=== PATIENT | male | born 1940 | race Caucasian/White ===

== ENCOUNTER → 2016-12-25 | Outpatient (CLI) | payer MEDICARE, BC ==
[~2016-12-25] MED LIST: FLEX5TAB OR; LORT5TAB PO; NAPR250UDC PO; SIMV5TAB3 OR
[2016-12-25 12:09] LABS: AUTOMATED NEUTROPHIL # 6.5 TH/MM3 (1.8-7.7); BASOPHIL # 0.1 TH/MM3 (0-0.2); BASOPHIL % 0.8 % (0.0-2.0); EOSINOPHIL # 0.5 TH/MM3 (0-0.4); EOSINOPHIL % 6.1 % (0.0-4.0); HEMATOCRIT 34.7 % (39.0-51.0); HEMO FLAGS DIFF FINAL; LYMPH % 11.7 % (9.0-44.0); LYMPHOCYTE # 1.1 TH/MM3 (1.0-4.8); MEAN CELL VOLUME 79.2 FL (80.0-100.0); MEAN CORPUSCULAR HEMOGLOBIN 26.4 PG (27.0-34.0); MEAN CORPUSCULAR HGB CONC 33.4 % (32.0-36.0); MONO % 8.8 % (0.0-8.0); NEUT % 72.6 % (16.0-70.0); PLATELET COUNT 291 TH/MM3 (150-450); RED BLOOD COUNT 4.39 MIL/MM3 (4.50-5.90); RED CELL DISTRIBUTION WIDTH 16.2 % (11.6-17.2)
[2016-12-25 12:37] LABS: FERRITIN 29 NG/ML (26-388); TRANSFERRIN IRON PROFILE 282 MG/DL (200-360)
== END ==
LOC: ELAB 09:51
PROVIDERS: ATTEND Family Medicine
DX: D64.9 Anemia, unspecified (principal)
CPT/HCPCS: 36415; 82728; 83540; 83550; 85025

== ENCOUNTER → 2017-03-26 | Outpatient (CLI) | payer MEDICARE, BC ==
[2017-03-26 12:07] LABS: AUTOMATED NEUTROPHIL # 2.9 TH/MM3 (1.8-7.7); BASOPHIL # 0.1 TH/MM3 (0-0.2); BASOPHIL % 1.4 % (0.0-2.0); EOSINOPHIL # 0.5 TH/MM3 (0-0.4); EOSINOPHIL % 10.3 % (0.0-4.0); HEMATOCRIT 36.1 % (39.0-51.0); HEMO FLAGS DIFF FINAL; LYMPH % 20.4 % (9.0-44.0); LYMPHOCYTE # 1.1 TH/MM3 (1.0-4.8); MEAN CELL VOLUME 82.1 FL (80.0-100.0); MEAN CORPUSCULAR HEMOGLOBIN 26.1 PG (27.0-34.0); MEAN CORPUSCULAR HGB CONC 31.7 % (32.0-36.0); MONO % 12.2 % (0.0-8.0); NEUT % 55.7 % (16.0-70.0); PLATELET COUNT 279 TH/MM3 (150-450); RED BLOOD COUNT 4.39 MIL/MM3 (4.50-5.90); RED CELL DISTRIBUTION WIDTH 17.3 % (11.6-17.2); WHITE BLOOD COUNT 5.3 TH/MM3 (4.0-11.0)
[2017-03-26 12:16] LABS: ANION GAP 9 MEQ/L (5-15); BICARBONATE 23.8 MEQ/L (21.0-32.0); BLOOD UREA NITROGEN 14 MG/DL (7-18); CHLORIDE 106 MEQ/L (98-107); GLOMERULAR FILTRATION RATE 91 ML/MIN (>89); GLUCOSE,FASTING 92 MG/DL (74-99); POTASSIUM 4.2 MEQ/L (3.5-5.1); SODIUM (NA) 139 MEQ/L (136-145)
[2017-03-26 12:22] LABS: FERRITIN 21 NG/ML (26-388); TRANSFERRIN IRON PROFILE 273 MG/DL (200-360)
== END ==
LOC: ELAB 08:44
PROVIDERS: ATTEND Family Medicine
DX: E61.1 Iron deficiency (principal); R60.0 Localized edema
CPT/HCPCS: 36415; 80048; 82728; 83540; 83550; 85025

== ENCOUNTER → 2017-09-28 | Outpatient (CLI) | payer BC, MEDICARE ==
[~2017-09-28] MED LIST changes: +CELE1CAP8; +CITA20TA4 PO; -FLEX5TAB OR; -LORT5TAB PO; -NAPR250UDC PO; +OMEP40CA2 PO; +PRAM1TAB PO; -SIMV5TAB3 OR; +TIZA2CAP3 PO
[2017-09-28 10:44] LABS: HEMATOCRIT 35.7 % (39.0-51.0); MEAN CELL VOLUME 87.3 FL (80.0-100.0); MEAN CORPUSCULAR HEMOGLOBIN 28.5 PG (27.0-34.0); MEAN CORPUSCULAR HGB CONC 32.6 % (32.0-36.0); PLATELET COUNT 246 TH/MM3 (150-450); RED BLOOD COUNT 4.09 MIL/MM3 (4.50-5.90); RED CELL DISTRIBUTION WIDTH 15.7 % (11.6-17.2); REVIEW FLAG FINAL; WHITE BLOOD COUNT 8.3 TH/MM3 (4.0-11.0)
[2017-09-28 10:51] LABS: APTT (PATIENT) 23.7 SEC (24.3-30.1); INTERNATIONAL NORMALIZED RATIO 1.1 RATIO; PROTHROMBIN TIME - PATIENT 10.7 SEC (9.8-11.6)
[2017-09-28 11:12] LABS: BICARBONATE 25.4 MEQ/L (21.0-32.0); POTASSIUM 4.2 MEQ/L (3.5-5.1)
--- NOTE | 2017-09-28 12:34 | RADRPT ---
EXAM DATE/TIME: 09/28/2017 11:24 [facility] COMPARISON: No previous studies available for comparison. INDICATIONS : Evaluate for pneumonia, pneumothorax and communicable diseases. Pre-op back surgery MEDICAL HISTORY : None. SURGICAL HISTORY : None. ENCOUNTER: Initial ACUITY: 1 day PAIN SCORE: 0/10 LOCATION: chest FINDINGS: The heart is normal in size. The lungs are clear. The visualized bony structures demonstrate degenera tive changes in the thoracic spine but are otherwise intact. CONCLUSION: 1. Degenerative changes in the thoracic spine. 2. No acute cardiopulmonary findings. Willy Christensen MD on September 28, 2017 at 12:31 Board Certified Radiologist. This report was verified electronically.
--- NOTE | 2017-09-28 15:17 | EKG ---
Date Performed: 09/28/2017 Time Performed: 11:05:36 PTAGE: 76 years EKG: Sinus rhythm . --- Suspect arm lead reversal - only aVF, V1-V6 analyzed --- Abnormal ECG NO PREVIOUS TRACING DOCTOR: Gary Boyd Interpretating Date/Time 09/28/2017 15:16:24
== END ==
LOC: CPRE 10:12
PROVIDERS: ATTEND Neurological Surgery
DX: Z01.810 Encounter for preprocedural cardiovascular examination (principal); Z01.811 Encounter for preprocedural respiratory examination; Z01.812 Encounter for preprocedural laboratory examination; Z01.818 Encounter for other preprocedural examination; M43.16 Spondylolisthesis, lumbar region; M54.16 Radiculopathy, lumbar region; R94.31 Abnormal electrocardiogram [ECG] [EKG]
CPT/HCPCS: 36415; 71020; 80048; 85027; 85610; 85730; 93005

== ENCOUNTER 2017-10-04 08:30 | Inpatient (IN) | payer MEDICARE, BC ==
[~2017-10-04] VITALS: Ht 171.4 cm; Wt 76.7 kg
[~2017-10-04 08:30] MED LIST changes: -CELE1CAP8; +CELE1CAP8 PO; -TIZA2CAP3 PO
[2017-10-05] MEDS ORDERED: TIZA2CAP3 PO (13:45)
[2017-10-22] MEDS ORDERED: CLINDAMYCIN 600 MG/NS PREMIX 50 ML IV SCH (07:15)
[2017-10-22] MEDS ORDERED: METOPROLOL TARTRATE 25 MG TAB PO PRN (07:15)
[2017-10-22] MEDS ORDERED: CHLORHEXIDINE GLUCONATE 2 % 1 PACK (2 CLOTHS) TOPICAL PRN (07:15)
[2017-10-22] MEDS ORDERED: LACTATED RINGER'S 1000 ML IV PRN (07:15)
[2017-10-22] MEDS ORDERED: POVIDONE IODINE 5% (ANTISEPSIS KIT) 4 APPLICATIONS EACH NARE PRN (07:15)
[2017-10-22] MEDS ORDERED: LACTATED RINGER'S 1000 ML INJ 1,000 ML IV SCH (07:15)
[2017-10-22] MEDS ORDERED: SODIUM CHLORID 0.9% 500 ML IV PRN (07:15)
[2017-10-22] MEDS ORDERED: THROMBIN (TOPICAL) 5,000 UNIT VIAL ONE (08:16)
[2017-10-22] MEDS ORDERED: HEPARIN SODIUM - SQ 10,000 UNITS/ML VIAL ONE (08:16)
[2017-10-22] MEDS ORDERED: GENTAMICIN SULFATE 80 MG/2 ML VIAL ONE (08:17)
[2017-10-22] MEDS ORDERED: GELFOAM SIZE 100 ONE (08:17)
[2017-10-22] MEDS ORDERED: BUPIVACAINE LIPOSOME PF 1.3% 20 ML VIAL ONE (08:19)
[2017-10-22] MEDS ORDERED: LIDOCAINE 1%/EPINEPHrine 1:100,000 SOLN 20 ML VIAL ONE (08:21)
[2017-10-22] MEDS ORDERED: BUPIVACAINE HCL PF 0.25% 30 ML VIAL ONE (08:21)
[2017-10-22] MEDS ORDERED: CLINDAMYCIN PHOS 600 MG/4 ML VIAL ONE (08:51)
[2017-10-22] MEDS ORDERED: PROPOFOL 500 MG/50 ML INJ 50 ML ONE (11:52)
[2017-10-22] MEDS ORDERED: PHENYLEPHRINE HCL 10 MG/ML VIAL IV ONE (12:00)
[2017-10-22] MEDS ORDERED: PHENYLEPH/NS 1000 MCG/10 ML SYR IV ONE (12:00)
[2017-10-22] MEDS ORDERED: ROCURONIUM INJ 50 MG/5 ML SYRINGE IV PUSH ONE (12:00)
[2017-10-22] MEDS ORDERED: ePHEDrine/NS 25 MG/5 ML SYRINGE IV ONE (12:00)
[2017-10-22] MEDS ORDERED: LIDOCAINE HCL 1% PF 5 ML SYRINGE OTHER ONE (12:00)
[2017-10-22] MEDS ORDERED: PROPOFOL 200 MG/20 ML AMP IV ONE (12:00)
[2017-10-22] MEDS ORDERED: LACTATED RINGER'S 1000 ML INJ 2,000 ML IV ONE (12:00)
--- NOTE | 2017-10-22 14:26 | RADRPT ---
EXAM DATE/TIME: 10/22/2017 09:38 [facility] COMPARISON: No previous studies available for comparison. INDICATIONS : L4/5 Laminectomy and PLIF of L4/5. MEDICAL HISTORY : Unobtainable. SURGICAL HISTORY : Unobtainable. ENCOUNTER: Initial ACUITY: 1 day PAIN SCORE: Non-responsive. LOCATION: Lumbar spine. FINDINGS: Lumbar transpedicular fixation L4-L5 anatomic alignment. CONCLUSION: Normal alignment. Kamran Christensen MD FACR on October 22, 2017 at 14:23 Board Certified Radiologist. This report was verified electronically.
[2017-10-22] MEDS ORDERED: MIDAZOLAM HCL 2 MG/2 ML VIAL ONE (14:33)
[2017-10-22] MEDS ORDERED: MORPHINE SULFATE 4 MG/ML INJ ONE (14:33)
[2017-10-22] MEDS ORDERED: *morphine SULFATE 4 MG/ML PERIprocedure ONLY ONE (14:54)
[2017-10-22] MEDS ORDERED: DO NOT ADM ANY ANTICOAGULANT DRUGS PRN (15:00)
[2017-10-22] MEDS ORDERED: BUPIVACAINE LIPOSOME PF 1.3% 20 ML VIAL INFIL ONE (15:00)
[2017-10-22] MEDS ORDERED: HYDROmorphone HCL PCA 6 MG/30 ML IV SCH (15:15)
[2017-10-22] MEDS ORDERED: NALOXONE HCL 0.4 MG/ML AMP IV PUSH PRN ×3 (15:15→15:30)
[2017-10-22] MEDS ORDERED: ONDANSETRON HCL 4 MG/2 ML VIAL IV PUSH PRN (15:15)
[2017-10-22] MEDS ORDERED: ACETAMINOPHEN/HYDROcodone 325 MG/5 MG TAB PO PRN (15:15)
[2017-10-22] MEDS ORDERED: MORPHINE SULFATE 2 MG/ML INJ IV PUSH PRN (15:15)
[2017-10-22] MEDS ORDERED: METHOCARBAMOL 500 MG TAB PO PRN (15:15)
[2017-10-22] MEDS: D5-1/2 NS + KCL 20 MEQ INJ 1,000 ML IV SCH (15:23)
--- NOTE | 2017-10-22 15:25 | PD.OP ---
Operative Report Date of Surgery: Oct 22, 2017 Preoperative Diagnosis: (1) Spondylolisthesis of lumbar region (2) Synovial cyst of lumbar facet joint (3) Lumbar canal stenosis (4) Lumbar radiculopathy (5) Low back pain 1. Grade 1 L4-L5 spondylolisthesis 2. Large right L4 5 synovial cyst extending from the lateral recess into the foramen and extraforaminal region. 3. Lumbar stenosis 4. Lumbar radiculopathy, primarily right L4-5 distribution 5. Low back pain Postoperative Diagnosis: (1) Spondylolisthesis of lumbar region (2) Synovial cyst of lumbar facet joint (3) Lumbar canal stenosis (4) Lumbar radiculopathy (5) Low back pain 1. Grade 1 L4-L5 spondylolisthesis 2. Large right L4 5 synovial cyst extending from the lateral recess into the foramen and extraforaminal region. 3. Lumbar stenosis 4. Lumbar radiculopathy, primarily right L4-5 distribution 5. Low back pain Procedure: 1. Bilateral L4 5 decompressive semi-laminectomy 2. Left L4-5 resection synovial cyst-lysis of adhesions 3. Left L4 5 facetectomy, foraminotomy 4. L4 5 discectomy, interbody fusion, PEEK cage, lamina autograft bone, demineralized bone matrix 5. Bilateral L4 5 posterior instrumentation with pedicle screw fixation Anesthesia: General Surgeon: Evan Devlin Customer Support Advisor(s): Wally Delgado Operation and Findings: Findings: Very large extensive left L4 5 level synovial cyst extending from the dorsal lateral canal and lateral recess through the left L4 5 foramen with additional large component in the left extraforaminal region and also lateral to the left L4 5 facet. Significant L4 5 facet separation with moderately severe bilateral ligamentum hypertrophy and secondary canal and lateral recess stenosis. Procedure in detail The patient was brought to the operating room and general endotracheal anesthesia induced without difficulty Lines were established her Anesthesia Sequential compression devices were in place The patient was positioned prone on the concentric Javier table with the side bolsters and all extremities appropriately padded Leads for intraoperative neuro monitoring were placed prior to positioning and a baseline study obtained Appropriate timeout procedure was performed with all personnel present and in agreement The lumbar region was shaved with clippers and sterilely prepped and draped 1% Xylocaine with epinephrine was used for local infiltration over the incision site which was made approximately 5.5 cm lateral to the midline at the bilateral L4-5 level and carried sharply down to the fascia. The fascia was sharply incised and finger dissection was used to separate the normal intermuscular plane at the bilateral L4 5 level, allowing direct palpation of the junction of the and pedicle and transverse process on each side. The entry point for the pedicle screws were determined by anatomic and radiographic landmarks. Using AP and lateral C-arm imaging, the Jamshidi needle was guided through the bilateral L4 and L5 pedicle. The intraoperative C-arm imaging was used to verify appropriate Jamshidi needle placement. The wires were then placed through the Jamshidi needle cannulas, and the cannula was withdrawn. The wires were temporarily clipped away from the operative field. On the left side Arreguin elevator was used for subperiosteal elevation of paraspinous musculature and fascia away from the lamina and spinous processes The deep self-retaining retractor was placed The appropriate levels were verified with intraoperative C-arm The microscope was moved into place and used for the remainder of the procedure including the closure The TPS drill with a 5 mm bone bur followed by the Kerrison rongeur was used to remove the inferior two thirds of the lamina at the cephalad level of the decompression and the superior third of the lamina at the caudal level of the decompression. This was performed starting on the left side, and then working across midline towards the right. The foraminotomy was performed on the right side with the 2 and 3 mm Kerrison rongeur. Hypertrophied ligamentum flavum was elevated away from the thecal sac and exiting nerve roots with the thin ligament dissector and resected with a 15 blade knife and Kerrison rongeur. On the left side, the large synovial cyst was initially encountered at the dorsal lateral aspect of the spinal canal at the L4 5 level. This was gently freed up from the adhesions adjacent to the thecal sac and exiting L4 and L5 nerve roots. The synovial cyst was then resected and the spinal canal with the Kerrison rongeurs and the pituitary biopsy forceps. The cyst was then followed laterally through the foramen. A large portion of synovial cyst at the dorsal lateral left L4 5 facet was also initially encountered and freed up from the surrounding tissue. In order to connect the more medial and lateral portions of the cyst and totally decompressed the exiting left L4 nerve root, a total left L4 5 facetectomy was performed with the TPS drill with a 5 mm bone bur followed by Kerrison rongeurs. The left L4 exiting nerve root and L5 traversing nerve root were then clearly delineated and preserved. The microdissectors were used to gently elevate the remainder of the synovial cysts at the foraminal and extraforaminal location away from the left L4 nerve root and the remainder of the cyst was resected with the bipolars and microscissors and sent for permanent section. The thecal sac and exiting nerve root were freed up from surrounding adhesions with the microdissectors and gently retracted medially revealing the underlying disc and annulus. There was moderate subannular disc herniation. The annulus was incised with the 11 blade knife and discectomy performed with pituitary biopsy forceps and straight and angled curettes The endplate scrapers were used to decorticate the endplates and any remaining debris was removed with the antibiotic irrigation and suction and pituitary biopsy forceps The appropriate size PEEK cage was packed with retained lamina cancellus autograft And a small amount of demineralized bone matrix A 9 mm lordotic cage was utilized. The cage was placed at the L4 5 level with a good fit of the cage. The placement was checked under the microscope and with intraoperative C-arm and felt to be satisfactory. The thecal sac and nerve roots were probed with the long blunt nerve hook and felt to be well decompressed The cannulated 5.5 mm tap was then used to prepare the pedicle screw sites on each side, with the dilators used to protect the surrounding tissue. The appropriate length Spine Wave Sniper percutaneous cannulated pedicle screw attached to the MIS extenders were placed into the bilateral L4 and L5 pedicle using the existing guidewires which were then removed. The 6.5 x 40 and 6.5 x 45 mm screws were utilized. Pedicle screw placement was checked with intraoperative C-arm imaging as well as intraoperative EMG Stimulation of the screws, and felt to be satisfactory. The percutaneous rods were placed across the pedicle screws on each side. Compression and alignment were achieved as necessary with the rods and reducers. The L5 screws were initially final tightened and the reducers were then used to reduce the spondylolisthesis by lifting the L4 body posterior. The L4 screws were then final tightened with the locking caps and torque wrench and antitorque device. The entire construct was checked with intraoperative C-arm and felt to be satisfactory The region was well irrigated with antibiotic irrigation The posterior lateral structures at the bilateral L4 5 levels were decorticated with the TPS drill The shavings were left in place, to which was added the remaining autograft and allograft bone which was firmly packed in place for the posterior lateral fusion. The 7 mm flat fluted drain was left in place at the operative side and brought out through a incision at the upper lumbar region and secured to the skin with nylon suture and attached to sterile suction bleeding was carefully controlled with the bipolar forceps The closure was performed with 0 Vicryl interrupted for the deep and superficial fascia, with 3-0 Vicryl for the subcutaneous closure and 4-0 Vicryl running subcuticular closure. Dressings sterile Mastisol, Steri-Strips and Primapore was placed The patient was turned into supine position and taken to recovery room in stable condition All counts were correct at the end of the case Estimated blood loss was 350 cc No specimen was sent to pathology Neuro monitoring was stable during the procedure Evan Devlin MD Oct 22, 2017 15:25
[2017-10-22] MEDS: MORPHINE SULFATE 30 MG/30 ML PCA IV SCH (15:37)
[2017-10-22 15:52] LABS: AUTOMATED NEUTROPHIL # 9.6 TH/MM3 (1.8-7.7); BASOPHIL # 0.1 TH/MM3 (0-0.2); BASOPHIL % 0.8 % (0.0-2.0); EOSINOPHIL # 0.3 TH/MM3 (0-0.4); EOSINOPHIL % 2.7 % (0.0-4.0); HEMATOCRIT 33.6 % (39.0-51.0); HEMOGLOBIN 10.9 GM/DL (13.0-17.0); LYMPH % 8.2 % (9.0-44.0); MEAN CORPUSCULAR HEMOGLOBIN 28.3 PG (27.0-34.0); MEAN CORPUSCULAR HGB CONC 32.5 % (32.0-36.0); MEAN PLATELET VOLUME 6.8 FL (7.0-11.0); MONO % 7.7 % (0.0-8.0); MONOCYTE # 0.9 TH/MM3 (0-0.9); NEUT % 80.6 % (16.0-70.0); PLATELET COUNT 260 TH/MM3 (150-450); RED BLOOD COUNT 3.86 MIL/MM3 (4.50-5.90); RED CELL DISTRIBUTION WIDTH 15.7 % (11.6-17.2)
[2017-10-22 16:07] LABS: BICARBONATE 24.7 MEQ/L (21.0-32.0); CALCIUM 8.3 MG/DL (8.5-10.1); CREATININE 0.75 MG/DL (0.60-1.30)
[2017-10-22] MEDS: ACETAMINOPHEN/HYDROcodone 325 MG/10 MG TAB PO PRN (17:01)
[2017-10-22 19:00] VITALS: BP 119/61; PULSE 85; RESP 18; TEMP 97.5; O2SAT 100
[2017-10-22] MEDS: KETOROLAC TROMETHAMINE 30 MG/ML (IVP) VIAL IV PUSH SCH (21:16)
[2017-10-22] MEDS: DOCUSATE SODIUM 100 MG CAP PO SCH (21:16)
[2017-10-22] MEDS: PRAMIPEXOLE DIHYDROCHLORIDE 1 MG TAB PO SCH (21:17)
[2017-10-22] MEDS: PCA - TOTAL MG MORPHINE DELIVERED PER SHIFT SCH (21:42)
[2017-10-22] MEDS ORDERED: PCA - TOTAL MG DILAUDID DELIVERED PER SHIFT OTHER SCH (22:00)
[2017-10-22 23:52] VITALS: BP 103/61; PULSE 81; RESP 18; TEMP 97.2; O2SAT 96
[2017-10-23] VITALS (8 sets, daily range): BP systolic 96–115; BP diastolic 51–65; PULSE 69–92; RESP 18–19; TEMP 98.2–99.8; O2SAT 94–98
[2017-10-23] MEDS: D5-1/2 NS + KCL 20 MEQ INJ 1,000 ML IV SCH ×3 (03:40→21:41)
[2017-10-23] MEDS: PCA - TOTAL MG MORPHINE DELIVERED PER SHIFT SCH ×3 (05:52→21:50)
[2017-10-23] MEDS: KETOROLAC TROMETHAMINE 30 MG/ML (IVP) VIAL IV PUSH SCH ×3 (06:32→21:42)
[2017-10-23 06:36] LABS: PROTHROMBIN TIME - PATIENT 10.4 SEC (9.8-11.6)
[2017-10-23 06:52] LABS: BICARBONATE 26.3 MEQ/L (21.0-32.0); CALCIUM 7.7 MG/DL (8.5-10.1); CREATININE 0.84 MG/DL (0.60-1.30)
[2017-10-23] MEDS: CITALOPRAM HYDROBROMIDE 20 MG TAB PO SCH (08:21)
[2017-10-23] MEDS: DOCUSATE SODIUM 100 MG CAP PO SCH ×2 (08:21→21:42)
[2017-10-23] MEDS: PANTOPRAZOLE SOD 40 MG DELAYED RELEASE TAB PO SCH (08:21)
[2017-10-23] MEDS: MORPHINE SULFATE 30 MG/30 ML PCA IV SCH (13:37)
[2017-10-23] MEDS ORDERED: diphenhydrAMINE HCL 25 MG CAP PO PRN (17:30)
[2017-10-23] MEDS: PRAMIPEXOLE DIHYDROCHLORIDE 1 MG TAB PO SCH (21:42)
--- NOTE | 2017-10-23 21:57 | HHI.NSPN ---
History Chief Complaint: low-back pain Interval History Date of Surgery: Oct 22, 2017 Preoperative Diagnosis: (1) Spondylolisthesis of lumbar region (2) Synovial cyst of lumbar facet joint (3) Lumbar canal stenosis (4) Lumbar radiculopathy (5) Low back pain 1. Grade 1 L4-L5 spondylolisthesis 2. Large right L4 5 synovial cyst extending from the lateral recess into the foramen and extraforaminal region. 3. Lumbar stenosis 4. Lumbar radiculopathy, primarily right L4-5 distribution 5. Low back pain Procedure: 1. Bilateral L4 5 decompressive semi-laminectomy 2. Left L4-5 resection synovial cyst-lysis of adhesions 3. Left L4 5 facetectomy, foraminotomy 4. L4 5 discectomy, interbody fusion, PEEK cage, lamina autograft bone, demineralized bone matrix 5. Bilateral L4 5 posterior instrumentation with pedicle screw fixation 10/23/2017: Ambulated approximately 50 feet with moderate assistance physical therapy. Actually 5/10 severity pain and therapy. Patient states this evening pain is increased. Not well controlled present COMMODITY LEAD dose. No pain weakness and numbness of the lower extremities with ambulation. Exam Results Vital Signs Date Time Temp Pulse Resp B/P (MAP) Pulse Ox O2 Delivery O2 Flow Rate FiO2 10/23/17 21:50 18 10/23/17 19:10 99.2 74 115/65 (82) 96 10/23/17 10:23 Nasal Cannula 2.00 Intake and Output 10/23/17 10/23/17 10/24/17 08:00 16:00 00:00 Intake Total 1480 ml 700 ml Output Total 280 ml 170 ml Balance 1200 ml 530 ml Physical Examination General: Lying in bed in no apparent distress Respirations: Clear to auscultation Cardiac: Regular without murmur Extremities: No edema Neurologic: Sensation light touch intact lower extremities Strength 5/5 throughout the lower extremities Lab, Micro, Other Results Laboratory Tests Test 10/23/17 05:41 Prothrombin Time 10.4 SEC Prothromb Time International Ratio 1.0 RATIO Activated Partial Thromboplast Time 23.3 SEC Blood Urea Nitrogen 12 MG/DL Creatinine 0.84 MG/DL Random Glucose 107 MG/DL Calcium Level 7.7 MG/DL Sodium Level 143 MEQ/L Potassium Level 4.1 MEQ/L Chloride Level 110 MEQ/L Carbon Dioxide Level 26.3 MEQ/L Anion Gap 7 MEQ/L Estimat Glomerular Filtration Rate 89 ML/MIN Medical Decision Making Impression and Plan Impression: 1. Stable neurologic status postoperative. Lower extremity radicular symptoms resolved. 2. Postoperative low back pain not well controlled with present COMMODITY LEAD dose Plan: Discussed with patient Discussed with nursing staff Increased COMMODITY LEAD dose Continue Toradol Scheduled Robaxin continue physical therapy Plan discontinue drain 10/24/2017 Evan Devlin MD Oct 23, 2017 21:57
[2017-10-23] MEDS: METHOCARBAMOL 500 MG TAB PO SCH (22:11)
[2017-10-23] MEDS ORDERED: NALOXONE HCL 0.4 MG/ML AMP IV PUSH PRN (22:15)
[2017-10-23] MEDS ORDERED: MORPHINE SULFATE 30 MG/30 ML PCA IV SCH (22:15)
[2017-10-24] VITALS (7 sets, daily range): BP systolic 90–110; BP diastolic 52–71; PULSE 78–93; RESP 17–18; TEMP 96.7–100.4; O2SAT 93–95
[2017-10-24] MEDS: METHOCARBAMOL 500 MG TAB PO SCH ×3 (05:55→21:07)
[2017-10-24] MEDS: KETOROLAC TROMETHAMINE 30 MG/ML (IVP) VIAL IV PUSH SCH ×2 (05:56→13:55)
[2017-10-24] MEDS: PCA - TOTAL MG MORPHINE DELIVERED PER SHIFT SCH ×3 (05:59→21:07)
[2017-10-24] MEDS: CITALOPRAM HYDROBROMIDE 20 MG TAB PO SCH (08:29)
[2017-10-24] MEDS: PANTOPRAZOLE SOD 40 MG DELAYED RELEASE TAB PO SCH (08:29)
[2017-10-24] MEDS: DOCUSATE SODIUM 100 MG CAP PO SCH ×2 (08:29→21:06)
[2017-10-24] MEDS: D5-1/2 NS + KCL 20 MEQ INJ 1,000 ML IV SCH (08:32)
[2017-10-24] MEDS: ACETAMINOPHEN/HYDROcodone 325 MG/10 MG TAB PO PRN ×2 (08:41→13:10)
[2017-10-24] MEDS: PRAMIPEXOLE DIHYDROCHLORIDE 1 MG TAB PO SCH (21:07)
[2017-10-25] VITALS (8 sets, daily range): BP systolic 104–140; BP diastolic 59–75; PULSE 66–96; RESP 16–18; TEMP 98.1–101.4; O2SAT 92–96
[2017-10-25] MEDS: ACETAMINOPHEN/HYDROcodone 325 MG/10 MG TAB PO PRN ×3 (05:57→18:33)
[2017-10-25] MEDS: METHOCARBAMOL 500 MG TAB PO SCH ×3 (05:57→22:48)
[2017-10-25] MEDS: PCA - TOTAL MG MORPHINE DELIVERED PER SHIFT SCH (05:58)
[2017-10-25] MEDS: CITALOPRAM HYDROBROMIDE 20 MG TAB PO SCH (08:02)
[2017-10-25] MEDS: PANTOPRAZOLE SOD 40 MG DELAYED RELEASE TAB PO SCH (08:02)
[2017-10-25] MEDS: DOCUSATE SODIUM 100 MG CAP PO SCH ×2 (08:02→21:01)
--- NOTE | 2017-10-25 10:30 | HHI.NSPN ---
(Donta Jacobson) History Chief Complaint: Low back pain. (Donta Jacobson) Interval History 10/23/2017: Ambulated approximately 50 feet with moderate assistance physical therapy. Actually 5/10 severity pain and therapy. Patient states this evening pain is increased. Not well controlled present PASSENGER COACH DRIVER dose. No pain weakness and numbness of the lower extremities with ambulation. 10/25: This morning the patient is awake in the bed and states he is not doing good. He continues to have pain to the lower back and states that he hurts whenever he moves. He denies any pain, numbness, tingling or weakness to the lower extremities. The SHASHANK drain was removed prior to the patient being seen. He is moving all extremities spontaneously. Nursing does report she spoke with Dr Devlin this morning and he is doing orders to adjust the patient's pain medications. (Donta Jacobson) Exam Results 10/23/17 10/23/17 10/24/17 10/24/17 10/25/17 10/25/17 06:00 18:00 06:00 18:00 06:00 18:00 Intake Total 1840 ml 700 ml 360 ml 360 ml 240 ml 60 ml Output Total 950 ml 170 ml 270 ml 260 ml 410 ml 300 ml Balance 890 ml 530 ml 90 ml 100 ml -170 ml -240 ml Intake Oral 840 ml 700 ml 360 ml 360 ml 240 ml 60 ml IV Total 1000 ml Output Urine Total 900 ml 150 ml 250 ml 250 ml 400 ml 300 ml Drainage Total 50 ml 20 ml 20 ml 10 ml 10 ml # Bowel Movements 0 0 0 0 0 0 Vital Signs Date Time Temp Pulse Resp B/P (MAP) Pulse Ox O2 Delivery O2 Flow Rate FiO2 10/25/17 10:15 92 10/25/17 04:25 101.3 93 18 140/68 (92) 92 10/25/17 00:30 101.4 96 18 108/60 (76) 94 10/25/17 00:19 Nasal Cannula 2.00 10/24/17 21:02 Room Air 10/24/17 20:45 100.4 93 18 110/71 (84) 94 10/24/17 17:37 94 Nasal Cannula 2.00 10/24/17 16:00 98.1 79 18 90/52 (65) 94 10/24/17 15:23 16 10/24/17 14:00 16 10/24/17 12:00 96.7 85 18 98/57 (71) 93 10/24/17 11:09 95 Nasal Cannula 2.00 10/24/17 08:00 98.9 78 17 95/57 (70) 95 10/24/17 06:56 18 10/24/17 05:59 18 10/24/17 04:13 98.1 89 18 105/68 (80) 95 10/24/17 01:00 Room Air 10/23/17 23:29 98.7 92 18 110/56 (74) 94 10/23/17 21:50 18 10/23/17 19:10 99.2 74 18 115/65 (82) 96 10/23/17 15:38 99.2 73 19 110/60 (77) 95 10/23/17 13:37 15 10/23/17 13:33 15 10/23/17 12:00 98.2 69 19 99/56 (70) 97 10/23/17 10:23 95 Nasal Cannula 2.00 10/23/17 07:52 99.8 85 19 96/51 (66) 95 10/23/17 07:20 Nasal Cannula 2.00 10/23/17 05:52 18 10/23/17 05:37 97 Nasal Cannula 2.00 10/23/17 03:47 99.8 85 18 100/62 (75) 98 10/22/17 23:52 97.2 81 18 103/61 (75) 96 10/22/17 21:42 18 10/22/17 19:17 18 10/22/17 19:00 97.5 85 18 119/61 (80) 100 10/22/17 18:00 98.0 80 12 107/63 (78) 95 Nasal Cannula 3 10/22/17 17:15 80 12 112/58 (76) 95 Nasal Cannula 3 10/22/17 16:00 75 12 103/57 (72) 97 Nasal Cannula 3 10/22/17 15:45 74 12 100/56 (71) 99 Nasal Cannula 3 10/22/17 15:37 13 10/22/17 15:30 76 26 114/55 (74) 95 Nasal Cannula 3 10/22/17 15:15 73 15 90/53 (65) 95 Nasal Cannula 3 10/22/17 15:00 72 14 97/54 (68) 96 Nasal Cannula 3 10/22/17 14:45 73 16 98/57 (71) 97 Nasal Cannula 3 10/22/17 14:30 74 17 97/55 (69) 96 Nasal Cannula 3 10/22/17 14:26 97.6 82 14 105/59 (74) 96 Nasal Cannula 3 (Donta Jacobson) Physical Examination GENERAL: Awake & alert in bed, readily interacts, affect flat, appears moderately uncomfortable but not in any distress. SKIN: Warm, dry & intact except for bilateral lumbar surgical incisions & SHASHANK drain site, all w/intact dressings, shadowing noted to the SHASHANK drain site dressing, no evident erythema or streaking. MUSCULOSKELETAL: MORA w/o difficulty, no evident clubbing or deformity. Thoracolumbar spine minimally TTP, left lateral lumbar surgical incision & SHASHANK drain site NTTP, right lateral lumbar surgical incision TTP. NEUROLOGICAL: AAOx3. Speech clear & appropriate. Follows simple commands w/o difficulty. Sensation intact to light touch to the lower extremities. Motor strength is 5/5 to all major flexion & extension muscle groups of the lower extremities. (Donta Jacobson) Lab, Micro, Other Results Laboratory Tests Test 10/22/17 15:31 10/23/17 05:41 White Blood Count 12.0 TH/MM3 Red Blood Count 3.86 MIL/MM3 Hemoglobin 10.9 GM/DL Hematocrit 33.6 % Mean Corpuscular Volume 87.0 FL Mean Corpuscular Hemoglobin 28.3 PG Mean Corpuscular Hemoglobin Concent 32.5 % Red Cell Distribution Width 15.7 % Platelet Count 260 TH/MM3 Mean Platelet Volume 6.8 FL Neutrophils (%) (Auto) 80.6 % Lymphocytes (%) (Auto) 8.2 % Monocytes (%) (Auto) 7.7 % Eosinophils (%) (Auto) 2.7 % Basophils (%) (Auto) 0.8 % Neutrophils # (Auto) 9.6 TH/MM3 Lymphocytes # (Auto) 1.0 TH/MM3 Monocytes # (Auto) 0.9 TH/MM3 Eosinophils # (Auto) 0.3 TH/MM3 Basophils # (Auto) 0.1 TH/MM3 CBC Comment DIFF FINAL Differential Comment Blood Urea Nitrogen 14 MG/DL 12 MG/DL Creatinine 0.75 MG/DL 0.84 MG/DL Random Glucose 94 MG/DL 107 MG/DL Calcium Level 8.3 MG/DL 7.7 MG/DL Sodium Level 143 MEQ/L 143 MEQ/L Potassium Level 3.9 MEQ/L 4.1 MEQ/L Chloride Level 111 MEQ/L 110 MEQ/L Carbon Dioxide Level 24.7 MEQ/L 26.3 MEQ/L Anion Gap 7 MEQ/L 7 MEQ/L Estimat Glomerular Filtration Rate 102 ML/MIN 89 ML/MIN Prothrombin Time 10.4 SEC Prothromb Time International Ratio 1.0 RATIO Activated Partial Thromboplast Time 23.3 SEC (Donta Jacobson) Medical Decision Making Impression and Plan Impression: 1. Grade 1 L4-L5 spondylolisthesis 2. Large right L4 5 synovial cyst extending from the lateral recess into the foramen and extraforaminal region. 3. Lumbar stenosis 4. Lumbar radiculopathy, primarily right L4-5 distribution 5. Low back pain The patient continues to have poor pain control in spite of having the PASSENGER COACH DRIVER pump. He has no evident radiculopathy upon examination. SHASHANK drain output for the past 24 hrs is 20 mL as of this morning which has subsequently been removed. Physical Therapy recommends home w/Home Health for further therapy. POD #3 () s/p : 1. Bilateral L4 5 decompressive semi-laminectomy 2. Left L4-5 resection synovial cyst-lysis of adhesions 3. Left L4 5 facetectomy, foraminotomy 4. L4 5 discectomy, interbody fusion, PEEK cage, lamina autograft bone, demineralized bone matrix 5. Bilateral L4 5 posterior instrumentation with pedicle screw fixation Plan: Discussed plan of care with patient. Discussed plan of care with Nursing. Medications being adjusted by Dr Devlin per Nursing. Mobilise patient w/assistance. LSO brace when OOB. PT eval & tx. Will order OT eval & tx. (Donta Jacobson) Attending Statement The exam, history, and the medical decision-making described in the above note were completed with the assistance of the mid-level provider. I reviewed and agree with the findings presented. I attest that I had a [id number] encounter with the patient on the same day, and personally performed and documented my assessment and findings in the medical record. Neuro exam stable postop. Adjust medications Home versus rehabilitation (Evan Devlin MD) Donta Jacobson Oct 25, 2017 10:30 Evan Devlin MD Oct 29, 2017 12:20
[2017-10-25] MEDS: DEXAMETHASONE SOD PHOS 4 MG/ML VIAL IV PUSH SCH ×2 (11:14→18:30)
[2017-10-25] MEDS ORDERED: BISACODYL 10 MG SUPP RECTAL PRN (12:30)
[2017-10-25] MEDS ORDERED: MAGNESIUM HYDROXIDE SUSP 30 ML CUP PO PRN (12:30)
[2017-10-25] MEDS: MORPHINE SULFATE 30 MG CONTROLLED RELEASE TAB PO SCH ×2 (13:47→22:48)
[2017-10-25 15:39] LABS: AUTOMATED NEUTROPHIL # 5.2 TH/MM3 (1.8-7.7); BASOPHIL % 0.3 % (0.0-2.0); EOSINOPHIL % 0.1 % (0.0-4.0); HEMATOCRIT 32.6 % (39.0-51.0); HEMOGLOBIN 11.2 GM/DL (13.0-17.0); LYMPH % 6.1 % (9.0-44.0); LYMPHOCYTE # 0.4 TH/MM3 (1.0-4.8); MEAN CELL VOLUME 85.9 FL (80.0-100.0); MEAN CORPUSCULAR HEMOGLOBIN 29.4 PG (27.0-34.0); MEAN CORPUSCULAR HGB CONC 34.2 % (32.0-36.0); MEAN PLATELET VOLUME 7.3 FL (7.0-11.0); MONOCYTE # 0.4 TH/MM3 (0-0.9); NEUT % 86.5 % (16.0-70.0); PLATELET COUNT 145 TH/MM3 (150-450); RED CELL DISTRIBUTION WIDTH 14.9 % (11.6-17.2)
[2017-10-25] MEDS ORDERED: MORPHINE SULFATE 30 MG CONTROLLED RELEASE TAB PO SCH (21:00)
[2017-10-25] MEDS: PRAMIPEXOLE DIHYDROCHLORIDE 1 MG TAB PO SCH (21:01)
[2017-10-26] VITALS: BP 99/65; PULSE 65; RESP 16; TEMP 95.9; O2SAT 95
[2017-10-26] MEDS: DEXAMETHASONE SOD PHOS 4 MG/ML VIAL IV PUSH SCH (03:54)
[2017-10-26 04:00] VITALS: BP 102/69; PULSE 55; RESP 16; TEMP 96.2; O2SAT 95
[2017-10-26 05:55] VITALS: BP 104/64
[2017-10-26] MEDS: METHOCARBAMOL 500 MG TAB PO SCH (05:58)
[2017-10-26] MEDS: ACETAMINOPHEN/HYDROcodone 325 MG/10 MG TAB PO PRN (05:59)
[2017-10-26 08:00] VITALS: BP 118/64; PULSE 60; RESP 16; TEMP 95.8; O2SAT 94
[2017-10-26] MEDS ORDERED: MORP1TAB25 PO (09:20)
[2017-10-26] MEDS ORDERED: DEXA2TAB PO (09:20)
[2017-10-26] MEDS ORDERED: HYDR-3583 PO (09:20)
--- NOTE | 2017-10-26 09:21 | HHI.DCPOC ---
Discharge Care Plan Your Health Problems Are: Difficulty with ADL Incision/Drains Exercise Tolerance Chronic Pain Goals to Promote Your Health * To prevent worsening of your condition and complications * To maintain your health at the optimal level Directions to Meet Your Goals Take your medications as prescribed Follow your dietary instruction Follow activity as directed Keep your appointments as scheduled Take your immunizations and boosters as scheduled If your symptoms worsen call your PCP, if no PCP go to Urgent Care Center or Emergency Room Smoking is Dangerous to Your Health. Avoid second hand smoke Call the 24-hour hour crisis hotline for domestic abuse at Evan Devlin MD Oct 26, 2017 09:21
[2017-10-26] MEDS: PANTOPRAZOLE SOD 40 MG DELAYED RELEASE TAB PO SCH (09:23)
--- NOTE | 2017-10-26 09:23 | HHI.FF ---
Face to Face Verification Diagnosis: (1) Lumbar radiculopathy (2) Spondylolisthesis of lumbar region Physical Therapy Order: Evaluate and Treat, Improve ambulation, Strength and gait training Instructions: LSO brace when out of bed I have seen patient Abraham Bautista on 10/26/17. My clinical findings support the need for the requested home health care services because: Deconditioned w/ increased weakness Limited ability to care for self High risk of falls I certify that my clinical findings support that this patient is homebound because: Unsteady gait/balance Unsafe to leave home unassisted Evan Devlin MD Oct 26, 2017 09:23
[2017-10-26] MEDS: CITALOPRAM HYDROBROMIDE 20 MG TAB PO SCH (09:24)
[2017-10-26] MEDS: DOCUSATE SODIUM 100 MG CAP PO SCH (09:24)
[2017-10-26] MEDS: MORPHINE SULFATE 30 MG CONTROLLED RELEASE TAB PO SCH (09:24)
--- NOTE | 2017-10-26 09:24 | HHI.DS ---
Discharge Summary Admission Date Oct 22, 2017 at 06:05 Discharge Date: Oct 26, 2017 Admitting Diagnosis Lumbar radiculopathy Lumbar spondylolisthesis Lumbar synovial cyst Lumbar canal stenosis (1) Synovial cyst of lumbar facet joint Diagnosis: Secondary ICD Code: M71.38 - Other bursal cyst, other site (2) Spondylolisthesis of lumbar region Diagnosis: Secondary ICD Code: M43.16 - Spondylolisthesis, lumbar region (3) Lumbar canal stenosis Diagnosis: Secondary ICD Code: M48.061 - Spinal stenosis, lumbar region without neurogenic claudication (4) Lumbar radiculopathy Diagnosis: Principal ICD Code: M54.16 - Radiculopathy, lumbar region (5) Low back pain Diagnosis: Secondary ICD Code: M54.5 - Low back pain Procedures L4 5 laminectomy discectomy interbody fusion and resection of synovial cyst , posterior instrumentation CBC/BMP: 10/25/17 1524 10/23/17 0541 Significant Findings Laboratory Tests Test 10/25/17 15:24 Red Blood Count 3.80 MIL/MM3 (4.50-5.90) Hemoglobin 11.2 GM/DL (13.0-17.0) Hematocrit 32.6 % (39.0-51.0) Platelet Count 145 TH/MM3 (150-450) Neutrophils (%) (Auto) 86.5 % (16.0-70.0) Lymphocytes (%) (Auto) 6.1 % (9.0-44.0) Lymphocytes # (Auto) 0.4 TH/MM3 (1.0-4.8) Hospital Course Patient admitted for the above-noted surgery, performed without complication. I initially some difficulty with pain control postoperative, eventually accomplished with adjustment of medications. He progressed steadily in physical therapy No postoperative medical complications Discharged home in good condition with home healthcare-physical therapy. Pt Condition on Discharge: Good Discharge Disposition: Disch w/ Home Health Serv Discharge Instructions DIET: Follow Instructions for: As Tolerated, No Restrictions ACTIVITIES You can perform: Weight Bearing As Ever Activities to Avoid: Lifting/Bending, Strenuous Activity New Medications: Dexamethasone (Dexamethasone) 2 Mg Tab 2 MG PO BID for Control Inflammation, #6 TAB 0 Refills Hydrocodone/Acetaminophen (Hydrocodone-Acetamin 10-325 mg) 10 Mg-325 Mg Tablet 1 TAB PO Q4H PRN for PAIN SCALE 6 TO 10, #60 TAB 0 Refills Morphine ER (Morphine ER) 30 Mg Tab 30 MG PO Q12HR for Pain Management, #14 TAB 0 Refills Continued Medications: Citalopram (Citalopram) 20 Mg Tab 20 MG PO DAILY for Control Depression, #30 TAB 0 Refills Omeprazole (Omeprazole) 40 Mg Cap 40 MG PO DAILY, #30 CAP 0 Refills Pramipexole (Pramipexole) 1 Mg Tab 2 MG PO HS for Parkinson Disease Mgmt, #30 TAB 0 Refills Tizanidine (Tizanidine) 2 Mg Cap 2 MG PO TID PRN for SPASM, #90 CAP 0 Refills Discontinued Medications: Celecoxib (Celecoxib) 200 Mg Cap 200 MG PO DAILY Evan Devlin MD Oct 26, 2017 09:24
[2017-10-26] MEDS ORDERED: WALKER WHEELS/F1 MIS (09:27)
[2017-10-26 10:40] VITALS: O2SAT 96
== END 2017-10-26 13:08 | disposition home health service (06) | DRG 455 ==
LOC: HSDI 10-22 06:05 → N06A 10-22 18:25
PROVIDERS: ADMIT Neurological Surgery; ATTEND Neurological Surgery
PROC: 0SG00J1 Fusion of Lumbar Vertebral Joint with Synthetic Substitute, Posterior Approach, Posterior Column, Open Approach (ICD-10-PCS; 2017-10-22)
PROC: 0ST20ZZ Resection of Lumbar Vertebral Disc, Open Approach (ICD-10-PCS; 2017-10-22)
PROC: 0SB00ZZ Excision of Lumbar Vertebral Joint, Open Approach (ICD-10-PCS; 2017-10-22)
PROC: 0SG00AJ Fusion of Lumbar Vertebral Joint with Interbody Fusion Device, Posterior Approach, Anterior Column, Open Approach (ICD-10-PCS; principal; 2017-10-22 08:32)
DX: M43.16 Spondylolisthesis, lumbar region (principal); F32.9 Major depressive disorder, single episode, unspecified; E78.5 Hyperlipidemia, unspecified; M46.06 Spinal enthesopathy, lumbar region; M48.061 Spinal stenosis, lumbar region without neurogenic claudication; M54.16 Radiculopathy, lumbar region; M71.38 Other bursal cyst, other site; K21.9 Gastro-esophageal reflux disease without esophagitis; Z85.46 Personal history of malignant neoplasm of prostate; G25.81 Restless legs syndrome; K57.90 Diverticulosis of intestine, part unspecified, without perforation or abscess without bleeding
CPT/HCPCS: 72100; 76000; 80048; 85025; 85610; 85730; 86850; 86900; 86901; 88304; 94150; C1713; C9290; J1100; J1580; J1644; J1885; J2250; J2270; J2370; J2405; J3010; J3480; J7120; L0484